=== PATIENT | male | born 1990 | race Caucasian/White ===

== ENCOUNTER 2018-05-02 01:34 | Emergency (ER) | payer SELFPAY ==
[2018-05-02 01:59] VITALS: BP 112/67; PULSE 88; TEMP 98.9; BMI 27.4
--- NOTE | 2018-05-02 02:14 | PDOC ---
Attending Attestation - Resident Resident Name: Idania Parks - ED Attending Attestation I have performed the following: I have examined & evaluated the patient, The case was reviewed & discussed with the resident, I agree w/resident's findings & plan - HPI HPI: 05/02/18 02:51 27-year-old male with Sore throat and bodyaches. - Physicial Exam PE: 05/02/18 02:52 Agree with resident's exam - Medical Decision Making 05/02/18 02:52 Well-appearing 27-year-old male with sore throat and bodyaches Viral swab and rapid strep Dexamethasone 10 mg given IM for mild uvular swelling Plan for DC home and a lab results
--- NOTE | 2018-05-02 02:18 | PDOC ---
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 The patient reports his child have cold/flu symptoms. He denies any chest pain or shortness of breath. Denies n/v/ Past History - Past Medical History Allergies/Adverse Reactions: Allergies Allergy/AdvReac Type Severity Reaction Status Date / Time No Known Allergies Allergy Verified 05/02/18 01:56 Home Medications: Ambulatory Orders Famotidine [Pepcid] 20 mg PO BID #14 tablet 03/14/16 Ondansetron [Zofran Odt -] 4 mg SL Q6H PRN #20 od.tablet 03/14/16 Oxycodone HCl/Acetaminophen [Percocet 5-325 mg Tablet] 1 tab PO Q6H PRN #12 tablet MDD 4 TABLETS 03/14/16 COPD: No - Immunization History Immunization Up to Date: Yes - Suicide/Smoking/Psychosocial Hx Smoking History: Never smoked Have you smoked in the past 12 months: No Information on smoking cessation initiated: No Hx Alcohol Use: No Drug/Substance Use Hx: No Substance Use Type: None *Physical Exam - Vital Signs Last Vital Signs Temp Pulse Resp BP Pulse Ox 98.9 F 88 20 112/67 99 05/02/18 01:56 05/02/18 01:56 05/02/18 01:56 05/02/18 01:56 05/02/18 01:56 Moderate Sedation - Procedure Monitoring Vital Signs: Procedure Monitoring Vital Signs Temperature 98.9 F 05/02/18 01:56 Pulse Rate 88 05/02/18 01:56 Respiratory Rate 20 05/02/18 01:56 Blood Pressure 112/67 05/02/18 01:56 O2 Sat by Pulse Oximetry (%) 99 05/02/18 01:56 Medical Decision Making - Medical Decision Making 05/02/18 03:26 ED Course: influienza A and strep throat negative. Patient to be discharged with supportive treatment . *DC/Admit/Observation/Transfer Diagnosis at time of Disposition: Viral syndrome - Discharge Dispostion Disposition: HOME Condition at time of disposition: Stable Decision to Admit order: No - Referrals Referrals: Kain Norris [Primary Care Provider] - - Patient Instructions Printed Discharge Instructions: DI for Viral Syndrome Additional Instructions: You were seen in the ED for complaints of sore throat, congestion and cough. In the ED you were evaluated with influenza and strep testing. Your results were negative and you showed improvement with supportive treatment. There does not appear to be an acute need for immediate hospitalization. You are advised to follow up with your Primary Care Physician within 1 week. Drink plenty of fluids and take over the counter Motrin and Tylenol for relief. Return to the ED immediately if you experience worsening sore throat or coughing , difficulty breathing, coughing blood, fever, headache, loss of consciousness, chest pain or shortness of breath. - Post Discharge Activity Forms/Work/School Notes: Back to Work
[2018-05-02] MEDS ORDERED: DEXAMETHASONE SOD PHOSPHATE 10 MG/1 ML VIAL IM ONE (02:47)
[2018-05-02] MEDS ORDERED: KETOROLAC TROMETHAMINE 30 MG/1 ML VIAL IM ONE (02:48)
[2018-05-02] MEDS ORDERED: DEXAMETHASONE 4 MG TABLET (FP) PO ONE (03:03)
[2018-05-02] MEDS ORDERED: IBUPROFEN 400 MG TABLET (FP) PO ONE ×2 (03:04)
[2018-05-02] MEDS ORDERED: DEXAMETHASONE SOD PHOSPHATE 10 MG/1 ML VIAL ONE (03:04)
== END 2018-05-02 03:37 | disposition home or self-care (01) ==
LOC: JER 01:34
DX: J06.9 Acute upper respiratory infection, unspecified (principal); B97.89 Other viral agents as the cause of diseases classified elsewhere; K12.2 Cellulitis and abscess of mouth
CPT/HCPCS: 87070; 87804; 87880; 99282-25

== ENCOUNTER 2018-11-07 17:48 | Emergency (ER) | payer OTHER ==
[2018-11-07 18:06] VITALS: BP 138/85; PULSE 60; TEMP 98.2; BMI 27.8
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
[2018-11-07] MEDS ORDERED: IBUPROFEN 600 MG TABLET (FP) PO ONE ×2 (18:48→18:53)
== END 2018-11-07 19:03 | disposition home or self-care (01) ==
LOC: JERFT 17:48 → JER 17:48 → JERFT 19:03
DX: Z04.1 Encounter for examination and observation following transport accident (principal); M79.601 Pain in right arm; V03.10XA Pedestrian on foot injured in collision with car, pick-up truck or van in traffic accident, initial encounter; Y93.01 Activity, walking, marching and hiking; Y92.410 Unspecified street and highway as the place of occurrence of the external cause
CPT/HCPCS: 99281-25

== ENCOUNTER 2019-11-24 07:46 | Emergency (ER) | payer OTHER ==
[2019-11-24 08:09] VITALS: BP 121/73; PULSE 52; TEMP 97.9; BMI 27.4
[2019-11-24] MEDS ORDERED: IBUPROFEN 600 MG TABLET (FP) PO ONE ×2 (08:23→08:36)
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
== END 2019-11-24 09:18 | disposition home or self-care (01) ==
LOC: JER 07:46
DX: S90.31XA Contusion of right foot, initial encounter (principal); S90.01XA Contusion of right ankle, initial encounter
CPT/HCPCS: 73610-TC-RT-FY; 73630-TC-RT-FY; 99283-25